=== PATIENT | female | born 1970 ===

== ENCOUNTER 2018-12-10 20:04 | Outpatient (AMB) | payer MEDICAID, SELFPAY ==
[2018-12-10 21:57] VITALS: BP 146/85; PULSE 92; RESP 20; TEMP 36.9; O2SAT 99; BMI 31.9
--- NOTE | 2018-12-10 21:57 | UCVISIT ---
Intake Ht./Wt. Decline/Exclusions Patient Declined Height and Weight this visit: No PT Meets exclusion criteria: No Vital Signs 12/10/18 21:57 Height 1.68 m Height Method Measured Weight 89.868 kg Weight Measurement Method Standing Scale BMI 31.9 Temp 98.4 F Temp Source Temporal Artery Scan Pulse 92 Pulse Source Monitor Respiration 20 BP 146/85 H Blood Pressure Source Automatic Cuff Blood Pressure Location Left Upper Arm Position Sitting Pulse Oximetry (%) 99 Oxygen Delivery Method Room Air Intake Zika Travel: No Been in contact w/anyone who has been Dx w/Zika Virus: No Been in contact w/anyone sick during travel outside country: No Patient >or equal to 18 years BMI outside of range 18.5-24.9: Yes Visit Reasons: UC Abdominal pain Primary Care Provider: Torin Palacios Is patient in pain?: Yes Pain Location:: abd [place]/Numerical: 5 Pain Scale Used: Numeric (1 - 10) Triage Triage Allergy / Med Rec Allergies No Known Allergies Allergy (Verified 12/10/18 22:06) Arrival PCP or OBGYN visit in last 3 months: No Female History Now: No : No Population Health PMH Hx Congestive Heart Failure: No Hx Diabetes Mellitus Type 1: No Hx Diabetes Mellitus Type 2: No Hx Renal Disease: No Hx Chronic Obstructive Pulmonary Disease (COPD): No Past Medical History Reviewed and agree with Nursing documentation.: Yes Cardiac Medical History Hx Congestive Heart Failure: No Endocrine Medical History Hx Diabetes Mellitus Type 1: No Hx Diabetes Mellitus Type 2: No Genitourinary Medical History Hx Renal Disease: No Respiratory Medical History Hx COPD: No HPI Abdominal Pain HPI History of Present Illness This is a 48-year-old female who presents to the urgent care complaining of sudden onset severe right upper quadrant abdominal pain that is worse with eating patient states her pain began today. She reports nausea without vomiting or diarrhea. She denies any fever. No sick contacts. No other complaints at this time. Onset: abrupt Pain location: abdomen - RUQ Pain quality: sharp, constant Exacerbated by: Reports food Improved by: Reports none Associated symptoms: Denies diarrhea or vomiting Review of Systems (UC) Review of Systems All systems reviewed & no additional complaints except as documented Const Constitutional: Denies fever(s) GI Gastrointestinal: Reports abdominal pain and Reports nausea; Denies diarrhea and Denies vomiting Exam (UC) Limitations: no limitations General Appearance: alert, in no apparent distress, comfortable, cooperative, healthy appearing, well developed and well groomed Head exam: atraumatic, normocephalic and normal inspection Eye exam: Reports normal appearance and Reports EOMI ENT exam: Present normal exam Neck Exam: Present normal inspection Chest/Breast Exam: Present normal inspection SPO2%: 99% SPO2 type: Room Air SPO2% Normal/Abnormal: Normal Respiratory exam: Present normal respiratory effort and able to speak in complete sentences Cardiovascular exam: Present regular rate Abdominal Exam: Present non-distended, normal bowel sounds, soft, guarding and Weiss's sign; Absent rebound Abdominal tenderness: Present RUQ Extremities exam: normal inspection Back exam: Present normal inspection Neurological Exam: Present alert, awake and oriented X3 Psychiatric exam: Present normal affect and normal mood Skin exam: Present warm, dry, intact and normal color Office Procedures UC Level of Care Nursing/Assessment/Reassessment Patient Status: Initial/New Patient Nursing Assessment/Reassessment: Triage Asessment, Initial Vital Signs and RN General Assessments Coordination of Care: DC Instructions Simple New Patient Charge New Patient Point Assignment: 1039 New Patient Point Assignment: MOTION PI[employer]URE DIRECTOR Level 2 ([id number]) Procedures: Pulse Ox reading: Yes UC Refer Patient to ED Yes Supplemental Info MDM: The patient will be referred to the emergency department for higher level care and further evaluation of her abdominal pain symptoms tonight. The patient and her family are comfortable driving their own vehicle to the emergency department tonight. Assessment and Plan Plan Details Other Orders: Orders: UC Refer Patient to ED Today Additional Comments: GO TO ER NOW Primary Care Provider: Torin Palacios Instructions: ED Abdominal Pain Unkn Cause Fem Additional Information PA/BAKER BENCH Supervising Physician: Deng Craft
== END 2018-12-10 22:15 | disposition home or self-care (01) ==
PROVIDERS: Visit Provider Physician Assistant